=== PATIENT | female | born 1970 | race Caucasian/White ===

== ENCOUNTER 2024-06-24 19:46 | Inpatient (IN) | payer OTHER ==
[~2024-06-24] VITALS: Ht 162.6 cm; Wt 60.0 kg
[2024-06-24] MEDS ORDERED: TRAZ50 PO (22:46)
[2024-06-24] MEDS ORDERED: Bentyl20 MG PO (22:47)
[2024-06-24] MEDS ORDERED: FOLI1 PO (22:48)
[2024-06-24] MEDS ORDERED: METO50ER PO (22:49)
[2024-06-24] MEDS ORDERED: HYDPAM25 PO (22:50)
[2024-06-24] MEDS ORDERED: B-1100 M1 PO (22:51)
[2024-06-24] MEDS ORDERED: VENL75ER PO (22:51)
[2024-06-24] MEDS ORDERED: EUTHYROX50 MCG PO (22:55)
[2024-06-24] MEDS ORDERED: ALDACTONE100 MG PO (22:56)
[2024-06-24] MEDS ORDERED: Naltrexone HCl50 MG PO (22:57)
[2024-06-24] MEDS ORDERED: MAGNESIUM OXID400 M1 PO (22:58)
[2024-06-24] MEDS ORDERED: FURO40 PO (22:58)
[2024-06-24 23:13] LABS: BASOPHILS ABSOLUTE AUTO 0.04 K/mm3 (0.00-0.23); BASOPHILS PERCENT AUTO 0 % (0-2); EOSINOPHILS PERCENT AUTO 2 % (0-6); Hematocrit 27.3 % (33.0-51.0); Hemoglobin 9.6 g/dL (11.5-16.0); IMMATURE GRAN ABSOLUTE AUTO 0.02 K/mm3 (0.00-0.10); IMMATURE GRAN PERCENT AUTO 0 % (0-1); LYMPHOCYTES ABSOLUTE AUTO 1.77 K/mm3 (0.84-5.20); LYMPHOCYTES PERCENT AUTO 19 % (21-46); MONOCYTES ABSOLUTE AUTO 0.78 K/mm3 (0.16-1.47); MONOCYTES PERCENT AUTO 8 % (4-13); Mean Corpuscular HGB 31.9 pg (26.0-34.0); Mean Corpuscular HGB Conc 35.2 g/dL (31.5-36.5); Mean Corpuscular Volume 91 fL (80-100); Mean Platelet Volume 10.3 fL (9.1-12.4); NEUTROPHILS ABSOLUTE AUTO 6.66 K/mm3 (1.96-9.15); NEUTROPHILS PERCENT AUTO 70 % (41-73); Platelet Count 223 K/mm3 (150-400); RDW Coefficient Variation 14.6 % (11.7-14.2); RDW Standard Deviation 48.7 fL (35.1-46.3); Red Blood Cell Count 3.01 M/mm3 (3.80-5.20); White Blood Cell Count 9.47 K/mm3 (4.00-11.30)
[2024-06-24 23:35] LABS: Albumin, Blood 2.8 g/dL (3.4-5.0); Albumin/Globulin Ratio 0.6 (0.8-1.8); Bilirubin, Total 1.3 mg/dL (0.1-1.0); Bun/Creatinine Ratio 14.2 (12.0-20.0); Calcium, Blood 9.5 mg/dL (8.5-10.1); Creatinine, Blood 0.77 mg/dL (0.40-1.00); Potassium, Blood 4.3 mmol/L (3.5-5.5); Total Protein, Blood 7.8 g/dL (6.4-8.2)
[2024-06-25] MEDS ORDERED: Lactated Ringer's 1,000 ML IV SCH (03:30)
[2024-06-25] MEDS ORDERED: FentaNYL Citrate 50 MCG/ML 2 ML Injection IV PRN (03:30)
[2024-06-25] MEDS ORDERED: HydrOXYzine Pamoate 25 MG Cap PO PRN (05:00)
[2024-06-25] MEDS ORDERED: FLU VACC TS2024-25(6MOS UP)/PF 45 MCG/0.5 ML SYRINGE IM ONE (05:15)
[2024-06-25] MEDS ORDERED: Ondansetron HCl 2 MG / ML 2ML Vial IV PRN (05:15)
[2024-06-25] MEDS ORDERED: NS 1,000 ML IV SCH (06:00)
[2024-06-25] MEDS ORDERED: Levothyroxine Sodium 0.05 MG Tab PO SCH (06:00)
[2024-06-25] MEDS ORDERED: Ampicillin Sod/Sulbactam Sod 3 GM in NS 100 ML IV SCH (06:00)
[2024-06-25 06:08] VITALS: BP 108/68
[2024-06-25] MEDS ORDERED: NS 1,000 ML IV ONE (06:30)
--- NOTE | 2024-06-25 06:51 | NUR ---
SHIFT SUMMARY PT ARRIVED TO UNIT AT 0600. REPORTS PAIN 7/10 ABD AND R BUTTOCKS. DENIES NAUSEA. AMB IND WITH CANE. VOIDING. NPO SINCE 0300 (JUICE IN ED). PAIN MANAGED PER EMAR. PT VOICED UNDERSTANDING OF PLAN OF CARE, DENIES QUESTIONS/CONCERNS AT THIS TIME.
[2024-06-25 07:53] LABS: International Normalized Ratio 1.35; Prothrombin Time Results 14.1 Sec (9.7-11.5)
[2024-06-25 08:41] VITALS: BP 122/69
[2024-06-25] MEDS ORDERED: Folic Acid 1 MG TAB PO SCH (09:00)
[2024-06-25] MEDS ORDERED: Venlafaxine HCl 75 MG CapCR PO SCH (09:00)
[2024-06-25] MEDS ORDERED: Thiamine HCl 100 MG Tab PO SCH (09:00)
[2024-06-25] MEDS ORDERED: Lactobacil 2-S.Thermo-Bifido 1 1 Cap PO SCH (09:00)
[2024-06-25] MEDS ORDERED: Furosemide 10 MG / ML 2ML Vial IV SCH (09:00)
[2024-06-25] MEDS ORDERED: Spironolactone 50 MG Tab PO SCH (09:00)
[2024-06-25] MEDS ORDERED: Metoprolol Succinate 50 MG TABCR PO SCH (09:00)
[2024-06-25 09:09] VITALS: BP 118/50
[2024-06-25 14:54] VITALS: BP 108/63
--- NOTE | 2024-06-25 17:40 | NUR ---
SHIFT SUMMARY PT HAS BEEN RESTING T/O SHIFT. MEDICATED FOR PAIN; DENIES N/V. TOLERATING CLEAR LQs, PLAN FOR NPO AFTER MIDNIGHT & HIDA SCAN IN AM.
[2024-06-25 19:15] VITALS: BP 114/66
[2024-06-25] MEDS ORDERED: TraZODone HCl 50 MG Tab PO SCH (21:00)
--- NOTE | 2024-06-26 04:02 | NUR ---
SHIFT SUMMARY PT ABLE TO REST MOST OF SHIFT. IV ABX GIVEN ORDERED. PAIN MANAGED W/ IV PAIN MEDS. VSS. PT IND TO BR, HAVING LOOSE STOOLS AND PASSING GAS, VOIDING. NPO AND NO NARCOTICS SINCE 0000 FOR HIDASCAN IN AM. PT COMFORTABLE AND SLEEPING. USING CALL LIGHT APPROPRIATELY.
[2024-06-26 04:42] VITALS: BP 108/63
[2024-06-26 05:16] LABS: BASOPHILS ABSOLUTE AUTO 0.08 K/mm3 (0.00-0.23); BASOPHILS PERCENT AUTO 1 % (0-2); EOSINOPHILS ABSOLUTE AUTO 0.48 K/mm3 (0.00-0.68); EOSINOPHILS PERCENT AUTO 8 % (0-6); Hematocrit 26.5 % (33.0-51.0); Hemoglobin 9.2 g/dL (11.5-16.0); IMMATURE GRAN ABSOLUTE AUTO 0.02 K/mm3 (0.00-0.10); IMMATURE GRAN PERCENT AUTO 0 % (0-1); LYMPHOCYTES ABSOLUTE AUTO 2.43 K/mm3 (0.84-5.20); LYMPHOCYTES PERCENT AUTO 38 % (21-46); MONOCYTES ABSOLUTE AUTO 0.66 K/mm3 (0.16-1.47); MONOCYTES PERCENT AUTO 10 % (4-13); Mean Corpuscular HGB 31.8 pg (26.0-34.0); Mean Corpuscular HGB Conc 34.7 g/dL (31.5-36.5); Mean Corpuscular Volume 92 fL (80-100); Mean Platelet Volume 9.7 fL (9.1-12.4); NEUTROPHILS ABSOLUTE AUTO 2.65 K/mm3 (1.96-9.15); NEUTROPHILS PERCENT AUTO 42 % (41-73); Platelet Count 222 K/mm3 (150-400); RDW Coefficient Variation 14.4 % (11.7-14.2); RDW Standard Deviation 48.7 fL (35.1-46.3); Red Blood Cell Count 2.89 M/mm3 (3.80-5.20); White Blood Cell Count 6.32 K/mm3 (4.00-11.30)
[2024-06-26 06:53] LABS: Albumin, Blood 2.4 g/dL (3.4-5.0); Albumin/Globulin Ratio 0.5 (0.8-1.8); Bilirubin, Total 1.2 mg/dL (0.1-1.0); Bun/Creatinine Ratio 10.4 (12.0-20.0); Creatinine, Blood 0.67 mg/dL (0.40-1.00); Globulin, Blood 4.5 g/dL (2.2-4.0); Potassium, Blood 4.2 mmol/L (3.5-5.5); Total Protein, Blood 6.9 g/dL (6.4-8.2)
[2024-06-26 07:20] VITALS: BP 108/59
--- NOTE | 2024-06-26 07:58 | NUR ---
TO IMAGING VIA WC FOR HIDA SCAN
[2024-06-26 13:00] LABS: Percent Saturation 33.2 % (15.0-50.0)
[2024-06-26 16:02] VITALS: BP 111/60
[2024-06-26] MEDS ORDERED: Banana Flakes/Tos 1 EA Powder Pack PO ONE (16:50)
[2024-06-26 19:19] VITALS: BP 110/66
--- NOTE | 2024-06-26 19:29 | NUR ---
SHIFT SUMMARY HIDA SCAN COMPLETED TODAY. DIET ADVANCED & TOLERATING WELL BUT REPORTS "IT WENT RIGHT THRU ME" PT HAVING LOOSE BM's. CONTINUES TO HAVE ABD PAIN, BUT DENIES N/V. PARACENTESIS TO BE COMPLETED TOMORROW DUE TO NUC MED STUDY TODAY, US PREFERS TIME IN BETWEEN.
[2024-06-27] MEDS ORDERED: NS 250 ML IV PRN (00:50)
[2024-06-27 03:51] VITALS: BP 133/79
[2024-06-27] MEDS ORDERED: OxyCODONE HCL 5 MG TAB PO PRN (04:15)
--- NOTE | 2024-06-27 05:48 | NUR ---
SHIFT SUMMARY PT HAS RESTED MOST OF THE NIGHT, APPEARED SLEEPING DURING MOST OF NURSE ROUNDS. PT TOLERATING PO INTAKE, AND AMBULATING INDEPEDENTLY IN ROOM. BOWEL TONES HYPERACTIVE. INTERMITTENT ABD PAIN MANAGED WITH MEDS PER EMAR. PLAN IS FOR PARACENTESIS TODAY. BED IN LOWEST POSITION, CALL LIGHT WITHIN REACH.
[2024-06-27 05:51] LABS: Albumin, Blood 2.4 g/dL (3.4-5.0); Albumin/Globulin Ratio 0.6 (0.8-1.8); Bilirubin, Total 0.9 mg/dL (0.1-1.0); Bun/Creatinine Ratio 10.3 (12.0-20.0); Calcium, Blood 8.9 mg/dL (8.5-10.1); Creatinine, Blood 0.58 mg/dL (0.40-1.00); Globulin, Blood 4.3 g/dL (2.2-4.0); Potassium, Blood 3.9 mmol/L (3.5-5.5); Total Protein, Blood 6.7 g/dL (6.4-8.2)
[2024-06-27 08:02] VITALS: BP 127/73
[2024-06-27] MEDS ORDERED: Banana Flakes/Tos 1 EA Powder Pack PO SCH (09:00)
[2024-06-27 10:48] LABS: Body Fluid WBC Count 200 /mm3 (0-999)
[2024-06-27 10:57] LABS: Albumin, Body Fluid 1.3 g/dL
[2024-06-27 11:22] LABS: RBC Count, Body Fluid 376 /mm3 (0-0)
[2024-06-27 11:28] LABS: Protein, Body Fluid 3.1 g/dL
[2024-06-27 12:04] LABS: Appearance, Body Fluid Clear (Clear); Color, Body Fluid Yellow (None-Yellow); Total Cell Count, Body Fluid 100
[2024-06-27 12:32] LABS: Adenovirus F 40/41 Not Detected (NOT DETECT); Astrovirus Not Detected (NOT DETECT); Campylobacter Sp Not Detected (NOT DETECT); Cryptosporidium Not Detected (NOT DETECT); Cyclospora Cayetanensis Not Detected (NOT DETECT); E. Coli O157 Not Detected (NOT DETECT); Entamoeba Histolytica Not Detected (NOT DETECT); Enteroaggregative E. coli-EAEC Not Detected (NOT DETECT); Enteropathogenic E. coli-EPEC Not Detected (NOT DETECT); Enterotoxigenic E. coli-ETEC Not Detected (NOT DETECT); Giardia Lamblia Not Detected (NOT DETECT); Norovirus GI/GII Not Detected (NOT DETECT); Plesiomonas Shigelloides Not Detected (NOT DETECT); Rotavirus A Not Detected (NOT DETECT); Salmonella Sp Not Detected (NOT DETECT); Sapovirus Not Detected (NOT DETECT); Shiga Toxin-prod E. coli-STEC Not Detected (NOT DETECT); Shigella/Enteroin E. coli-EIEC Not Detected (NOT DETECT); Vibrio Cholerae Not Detected (NOT DETECT); Vibrio Sp Not Detected (NOT DETECT); Yersinia Enterocolitica Not Detected (NOT DETECT)
[2024-06-27] MEDS ORDERED: Loperamide HCl 2 MG Cap PO STA (13:41)
[2024-06-27] MEDS ORDERED: Loperamide HCl 2 MG Cap PO PRN (14:00)
[2024-06-27] MEDS ORDERED: VISBIOME 112.51 EACH PO (15:03)
[2024-06-27] MEDS ORDERED: SULTRIDS PO (15:04)
== END 2024-06-27 16:10 | disposition home or self-care (01) | DRG 433 ==
LOC: ER 19:46 → SURS 19:47
PROVIDERS: Internal Medicine; Student in an Organized Health Care Education/Training Program; Surgery; ADMIT Internal Medicine
PROC: 0W9G3ZZ Drainage of Peritoneal Cavity, Percutaneous Approach (ICD-10-PCS; principal; 2024-06-27)
DX: K70.31 Alcoholic cirrhosis of liver with ascites (principal); E87.1 Hypo-osmolality and hyponatremia; K61.0 Anal abscess; K52.1 Toxic gastroenteritis and colitis; D63.8 Anemia in other chronic diseases classified elsewhere; E03.9 Hypothyroidism, unspecified; I10 Essential (primary) hypertension; F41.9 Anxiety disorder, unspecified; Z96.643 Presence of artificial hip joint, bilateral; K80.20 Calculus of gallbladder without cholecystitis without obstruction; F32.A Depression, unspecified; T36.95XA Adverse effect of unspecified systemic antibiotic, initial encounter; Z88.1 Allergy status to other antibiotic agents; Z88.8 Allergy status to other drugs, medicaments and biological substances; Z79.890 Hormone replacement therapy
CPT/HCPCS: 36415; 49083; 72192; 74177; 76705; 78226; 80053; 82042; 82607; 82728; 82746; 83540; 83550; 83605; 83690; 84157; 85025; 85610; 87507; 89051; 93005; 93010; 94762; 96361; 96365; 96366; 96374-59; 96375-59; 96376; 99285-25; A9270; A9537; G0378; J0295; J3010; J7050; J7120; Q9967